=== PATIENT | male | born 1990 | race Two or more races ===

== ENCOUNTER 2018-12-13 23:08 | Emergency (ER) | payer SELFPAY ==
[2018-12-13] MEDS ORDERED: Sodium Chloride 0.9% 1,000 ML IV ONE (23:20)
--- NOTE | 2018-12-13 23:33 | ED Physician Chart ---
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 he admits to drug use also. he was in this er in the past for the same symptoms. he denies having previous surgery. Allergies:: Allergies Allergy/AdvReac Type Severity Reaction Status Date / Time No Known Allergies Allergy Verified 06/12/16 21:29 Vitals:: Vital Signs - 8 hr 12/13/18 23:10 Temp 97.9 F HR 89 RR 17 BP 158/67 O2 Sat % 99 Historian:: Patient, Family Member (mother) Review:: Nurse's Note Reviewed, Old Chart Reviewed ED Review of Systems - Review of Systems General/Constitutional: No fever, No chills, No weight loss, No weakness, No diaphoresis, No edema, No loss of appetite Skin: No skin lesions, No rash, No bruising Head: No headache, No light-headedness Eyes: No loss of vision, No pain, No diplopia ENT: No earache, No nasal drainage, No sore throat, No tinnitus Neck: No neck pain, No swelling, No thyromegaly, No stiffness, No mass noted Cardio Vascular: No chest pain, No palpitations, No PND, No orthopnea, No edema Pulmonary: No SOB, No cough, No sputum, No wheezing GI: Nausea, Vomiting, No diarrhea, Pain, No melena, No hematochezia, No constipation, No hematemesis G/U: No dysuria, No frequency, No hematuria Musculoskeletal: No bone or joint pain, No back pain, No muscle pain Endocrine: No polyuria, No polydipsia Psychiatric: No prior psych history, No depression, No anxiety, No suicidal ideation Hematopoietic: No bruising, No lymphadenopathy Allergic/Immuno: No urticaria, No angioedema Neurological: No syncope, No focal symptoms, No weakness, No paresthesia, No headache, No seizure, No dizziness, No confusion, No vertigo ED Past Medical History - Past Medical History Obtainable: Yes Past Medical History: Other (alcohol abuse) Family History: None Social History: Non Smoker, Alcohol, Illicit Drug Use, Employed ([employer]) Surgical History: None Psychiatricy History: None Medication: Reviewed Family Medical History - Family Member Sister History Unknown: Yes Ethnicity: Living Status: Still Living Hx Family Cancer: No Hx Family Coronary Artery Disease: No Hx Family Congestive Heart Failure: No Hx Family Hypertension: No Hx Family Stroke: No Hx Family Diabetes: No ED Physical Exam - Physical Examination General/Constitutional: Awake, Well-developed, well-nourished, Alert, No distress, GCS 15, Non-toxic appearing, Ambulatory Other Gen/Cons comments:: restless but oriented times four. Head: Atraumatic Eyes: Lids, conjuctiva normal, PERRL, EOMI Skin: Nl inspection, No rash, No skin lesions, No ecchymosis, Well hydrated, No lymphadenopathy ENMT: External ears, nose nl, Nasal exam nl, Lips, teeth, gums nl Neck: Nontender, Full ROM w/o pain, No JVD, No nuchal rigidity, No bruit, No mass, No stridor Respiratory: Nl effort/Exclusion, Clear to Auscultation, No Wheeze/Rhonchi/Rales Cardio Vascular: RRR, No murmur, gallop, rubs, NL S1 S2 GI: No tenderness/rebounding/guarding (there is generalize tenderness with rebound), No organomegaly, No hernia, Normal BS's, Nondistended, No mass/bruits , No McBurney tenderness : No CVA tenderness Extremities: No tenderness or effusion, Full ROM, normal strength in all extremities, No edema, Normal digits & nails Neuro/Psych: Alert/oriented, DTR's symmetric, Normal sensory exam, Normal motor strength, Judgement/insight normal, Mood normal, Normal gait, No focal deficits Misc: Normal back, No paraspinal tenderness ED Labs/Radiology/EKG Results - Lab Results Results: Abnormal Lab Results 12/13/18 12/13/18 12/13/18 23:30 23:30 23:30 WBC 18.7 H RBC 4.68 Hgb 15.3 Hct 44.4 MCV 94.9 MCH 32.8 H MCHC Differential 34.5 RDW 12.9 Plt Count 383 MPV 7.4 Neutrophils % 83.5 H Lymphocytes % 13.6 L Monocytes % 2.8 Eosinophils % 0.1 Basophils % 0.0 PT 9.4 L INR 0.90 PTT (Actin FS) 21.6 L Sodium 140 Potassium 3.7 Chloride 94 L Carbon Dioxide 17.7 L Anion Gap 32.0 H BUN 15 Creatinine 0.7 Est GFR ( Amer) > 60.0 Est GFR (Non-Af Amer) > 60.0 BUN/Creatinine Ratio 21.4 Glucose 112 H Whole Bld Lactic Acid Calcium 9.7 Total Bilirubin 0.7 AST 46 H ALT 24 Alkaline Phosphatase 44 Ammonia Troponin I Total Protein 8.3 Albumin 5.3 Globulin 3.0 Albumin/Globulin Ratio 1.8 Amylase 125 H Ethyl Alcohol 12/13/18 12/13/18 12/13/18 23:30 23:30 23:30 WBC RBC Hgb Hct MCV MCH MCHC Differential RDW Plt Count MPV Neutrophils % Lymphocytes % Monocytes % Eosinophils % Basophils % PT INR PTT (Actin FS) Sodium Potassium Chloride Carbon Dioxide Anion Gap BUN Creatinine Est GFR ( Amer) Est GFR (Non-Af Amer) BUN/Creatinine Ratio Glucose Whole Bld Lactic Acid 9.25 H* Calcium Total Bilirubin AST ALT Alkaline Phosphatase Ammonia Troponin I < 0.01 L Total Protein Albumin Globulin Albumin/Globulin Ratio Amylase Ethyl Alcohol 192 H 12/13/18 23:30 WBC RBC Hgb Hct MCV MCH MCHC Differential RDW Plt Count MPV Neutrophils % Lymphocytes % Monocytes % Eosinophils % Basophils % PT INR PTT (Actin FS) Sodium Potassium Chloride Carbon Dioxide Anion Gap BUN Creatinine Est GFR ( Amer) Est GFR (Non-Af Amer) BUN/Creatinine Ratio Glucose Whole Bld Lactic Acid Calcium Total Bilirubin AST ALT Alkaline Phosphatase Ammonia 35 Troponin I Total Protein Albumin Globulin Albumin/Globulin Ratio Amylase Ethyl Alcohol - Radiology Results Results: ct scan of the abdomen and pelvis = nad ED Assessment - Assessment General Assessment: alcohol intoxication acute gastritis vomiting ED Septic Shock - . Is Septic Shock (SBP<90, OR Lactate>4 mmol\L) present?: No - <6hrs of presentation: Vital Signs: Vital Signs - 8 hr 12/13/18 23:10 Temp 97.9 F HR 89 RR 17 BP 158/67 O2 Sat % 99 ED Reassessment (Disposition) - Reassessment Reassessment Condition:: Improved - Diagnosis Diagnosis:: alcohol intoxication vomiting gastritis - Patient Disposition Discharge/Transfer:: Against Medical Advice
[2018-12-13 23:45] LABS: % EOSINOPHILS 0.1 % (0.0-5.0); % LYMPHOCYTES 13.6 % (20.0-50.0); % MONOCYTES 2.8 % (2.0-10.0); % NEUTROPHILS 83.5 % (40.0-80.0); HEMATOCRIT 44.4 % (41.0-60); HEMOGLOBIN 15.3 gm/dL (12-16); LYMPHOCYTE ABSOLUTE 2.5 Th/cmm (1.5-3.0); MEAN CELL VOLUME 94.9 fl (80-99); MEAN CORPUSCULAR HEMOGLOBIN 32.8 pg (26.0-30.0); MEAN CORPUSCULAR HGB CONC 34.5 pg (28.0-36.0); MEAN PLATELET VOLUME 7.4 fl; MONOCYTE ABSOLUTE 0.5 Th/cmm (0.3-1.0); NEUTROPHILE ABSOLUTE 15.7 Th/cmm (1.8-8.0); PLATELET COUNT 383 Th/cmm (150-400); RED BLOOD COUNT 4.68 Mil/cmm (4.30-5.70); RED CELL DISTRIBUTION WIDTH 12.9 % (11.5-20.0)
[2018-12-14 00:08] LABS: INR 0.9 (0.5-1.4); PROTHROMBIN TIME (TEST) 9.4 SECONDS (9.5-11.5)
[2018-12-14 00:09] LABS: ALB/GLOB RATIO 1.8 (1.0-1.8); ALBUMIN 5.3 gm/dL (4.2-5.5); ALKALINE PHOSPHATASE 44 U/L (34-104); AMYLASE SERUM 125 U/L (29-103); BILIRUBIN,TOTAL 0.7 mg/dL (0.3-1.0); BUN - UREA NITROGEN 15 mg/dL (7-25); CALCIUM SERUM 9.7 mg/dL (8.6-10.3); CARBON DIOXIDE 17.7 mEq/L (21.0-31.0); CHLORIDE 94 mEq/L (98-107); CREATININE - SERUM 0.7 mg/dL (0.7-1.3); GFR AFRICAN-AMERICAN > 60.0 ml/min (>90); GFR NON AFRICAN-AMERICAN > 60.0 ml/min; GLUCOSE 112 mg/dL (70-105); POTASSIUM SERUM 3.7 mEq/L (3.5-5.1); SGOT 46 U/L (13-39); SGPT/ALT 24 U/L (7-52); SODIUM SERUM 140 mEq/L (136-145); TOTAL PROTEIN,SERUM 8.3 gm/dL (6.0-8.3); WHITE BLOOD COUNT 18.7 Th/cmm (4.8-10.8)
[2018-12-14] MEDS ORDERED: Potassium Chloride 40 MEQ, Lidocaine 1% 20mL Vial 25 MG in Sodium Chloride 0.9% 250 ML IV ONE (00:16)
[2018-12-14] MEDS ORDERED: Sodium Chloride 0.9% 1,000 ML IV ONE (00:16)
[2018-12-14] MEDS ORDERED: Potassium Chloride Elixir 20 mEq /15 mL UDC PO ONE (00:25)
[2018-12-14] MEDS ORDERED: Potassium Chloride Elixir 20 mEq /15 mL UDC ONE (00:32)
--- NOTE | 2018-12-14 09:41 | Diagnostic Imaging Report ---
Exam: CT examination of the pelvis. HISTORY: Abdominal pain Total DLP equals 296 CTDI equals 6.8 COMPARISON 06/12/2016 Findings: Multiple thin section of the abdomen pelvis obtained from lower thorax to pubic symphysis without the administration of oral or intravenous contrast material therefore the study is limited. The study demonstrates hepatomegaly. Fatty infiltration of the liver parenchyma. The spleen is intact. The kidneys demonstrate no evidence of obstructive uropathy. Nonobstructing right renal stone is again noted. The pancreas is intact. No free fluid is noted. Appendix is normal. Distention small bowel loops suggestive of mild ileus. There is no evidence of diverticular disease of diverticulitis. IMPRESSION: Hepatomegaly, fatty infiltration liver parenchyma. Nonobstructing right renal calculus unchanged upper prior study. Mild ileus.
== END 2018-12-14 02:40 | disposition left against medical advice (07) ==
LOC: ER 23:08
DX: K29.00 Acute gastritis without bleeding (principal); F10.129 Alcohol abuse with intoxication, unspecified; Y90.6 Blood alcohol level of 120-199 mg/100 ml
CPT/HCPCS: 99284; 96374; 96375; 96376; 84484; 36415; 83605; 84443; 85025; 85610; 85730; 80320; 82140; 82150; 80053; 87040 ×2; 74176; Q0162; J1885; J2060 ×2; J2405; J0696; J1200; J7030